=== PATIENT | female | born 1985 | race Caucasian/White ===

== ENCOUNTER 2019-01-30 12:20 | Emergency (ER) | payer MEDICAID ==
[~2019-01-30] VITALS: Ht 154.9 cm; Wt 74.8 kg
[2019-01-30 12:35] VITALS: BP_SYST 164
--- NOTE | 2019-01-30 12:40 | NUR ---
Patient to ER bed 03 to gown for evaluation. Side rails up.
--- NOTE | 2019-01-30 12:45 | NUR ---
Patient arrived in the ED c/o right upper eyelid drooping, slurred speech, right arm and right knee weakness, mild SOB, and upper extremity jitters. Patient's VS WNL, alert and oriented x 4, denied any c/p or changes in vision. Speaks in full sentences. Denied any respiratory distress at this time. Instructed to notify ED staff if symptoms worsen while waiting to be seen by a provider. Patient verbalized understanding.
--- NOTE | 2019-01-30 12:48 | NUR ---
Urine specimen collected and labeled, at bedside awaiting orders.
--- NOTE | 2019-01-30 12:51 | NUR ---
ER at bedside examining patient.
[2019-01-30] MEDS ORDERED: NACL 0.9% 1,000 ML IV ONE (13:00)
[2019-01-30 13:15] LABS: BILIRUBIN,URINE NEGATIVE (NEGATIVE); BLOOD, URINE NEGATIVE (NEGATIVE); CLARITY/URINE CLEAR (CLEAR); COLOR,URINE YELLOW (YELLOW); GLUCOSE,URINE NEGATIVE (NEGATIVE); KETONES,URINE NEGATIVE (NEGATIVE); LEUKOCYTE ESTERASE ,URINE NEGATIVE (NEGATIVE); NITRITE, URINE NEGATIVE (NEGATIVE); PROTEIN URINE NEGATIVE (NEGATIVE); UROBILINOGEN,URINE 0.2 (0.2-1.0)
[2019-01-30] MEDS ORDERED: ONDANSETRON HCL 4 MG/2 ML VIAL IVP ONE (13:15)
[2019-01-30] MEDS ORDERED: methylPREDNISolone SOD SUCC/PF 62.5 MG/ML VIAL IVP ONE (13:15)
[2019-01-30] MEDS ORDERED: MORPHINE 2 MG/ML INJ. SYRINGE IVP ONE ×2 (13:15→15:15)
--- NOTE | 2019-01-30 13:15 | NUR ---
# 20 gauge angiocath placed to right arm. Use of asceptic technique. Opsite placed over site. Blood return noted. Blood for lab drawn from site. Flushed with 10 cc of normal saline. No evidence of infiltration noted. Patient tolerated well. Medicated per MD orders. IVF infusing with no s/s of infiltration at this time. Will cont to monitor
[2019-01-30 13:43] LABS: BASOPHILS # (AUTO) 0.1 K/uL (0.0-0.2); BASOPHILS % (AUTO) 0.9 % (0.0-2.0); EOSINOPHILS # (AUTO) 0.2 K/uL (0.0-0.4); EOSINOPHILS % (AUTO) 2.8 % (0.0-4.0); HEMATOCRIT 36.6 % (36-48); HEMOGLOBIN 12.3 g/dL (12.0-16.0); LYMPHOCYTES # (AUTO) 1.5 K/uL (1.0-5.5); LYMPHOCYTES % (AUTO) 24.5 % (20.5-51.5); MEAN CORPUSCULAR HEMOGLOBIN 30 pg (27-31); MEAN CORPUSCULAR HGB CONC 34 % (32-36); MEAN CORPUSCULAR VOLUME 88 fL (79.0-98.0); MONOCYTES # (AUTO) 0.3 K/uL (0.0-1.0); MONOCYTES % (AUTO) 4.2 % (1.7-9.3); NEUTROPHILS # (AUTO) 4.2 K/uL (1.8-7.7); NEUTROPHILS % (AUTO) 67.6 % (40.0-70.0); PLATELET COUNT (AUTO) 329 K/uL (130-430); RED BLOOD CELL COUNT(AUTO) 4.16 MIL/uL (4.2-6.2); RED CELL DISTRIBUTION WIDTH 15.4 % (9.0-15.0); WHITE BLOOD COUNT (AUTO) 6.3 K/uL (4.8-10.8)
[2019-01-30 13:58] LABS: CALCIUM 8.4 mg/dL (8.4-11.0); CREATININE 0.67 mg/dL (0.55-1.30); POTASSIUM 3.4 mmol/L (3.5-5.1)
[2019-01-30 14:01] LABS: INR 0.9 (0.8-1.2)
[2019-01-30 14:04] LABS: ALBUMIN 3.3 g/dL (3.4-4.8); TOTAL BILIRUBIN 0.3 mg/dL (0.0-1.0)
[2019-01-30] MEDS ORDERED: DIPHENHYDRAMINE INJ 50 MG/ML VIAL IVP ONE (14:15)
--- NOTE | 2019-01-30 15:05 | NUR ---
ER Dr. Cotto at bedside discussing pain with patient.
--- NOTE | 2019-01-30 15:09 | NUR ---
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 tel: [phone]
[2019-01-30 15:15] VITALS: BP_SYST 137
--- NOTE | 2019-01-30 15:35 | NUR ---
Patient given written and verbal discharge instructions and verbalizes understanding. ER MD discussed with patient the results and treatment provided. Patient in stable condition. ID arm band removed. IV catheter removed intact and dressing applied, no active bleeding. Rx of Zofran & Tramadol given. Patient educated on pain management and to follow up with PMD. Pain Scale 2/10 tolerable for patient . Opportunity for questions provided and answered. Medication side effect fact sheet provided.
== END 2019-01-30 15:35 | disposition home or self-care (01) ==
LOC: SED 12:20
DX: R10.84 Generalized abdominal pain (principal); R19.7 Diarrhea, unspecified; G51.0 Bell's palsy; Z88.8 Allergy status to other drugs, medicaments and biological substances; Z90.49 Acquired absence of other specified parts of digestive tract
CPT/HCPCS: 36415; 71045; 74176; 80053; 81003; 83605; 85025; 85610; 85730; 87040; 87086; 93005; 96361; 96374; 96375; 96376; 99284; J1200; J2270; J2405; J2930; J7030

== ENCOUNTER 2019-04-15 10:50 | Emergency (ER) | payer MEDICAID ==
[~2019-04-15] VITALS: Ht 154.9 cm; Wt 77.1 kg
[2019-04-15 10:56] VITALS: BP_SYST 170
--- NOTE | 2019-04-15 11:37 | NUR ---
PATIENT PRESENTS TO THE ER WITH THREE DAY HX OF FULL HEAD PAIN AND ELEVATED ABP; NO TRAUMA, NO OTHER REMARKABLE S/S; ERMD EVALUATION AT 1130 AND PATIENT TO ER #2 AT 1115
[2019-04-15] MEDS ORDERED: LORazepam 1 MG TABLET PO ONE (11:45)
[2019-04-15] MEDS ORDERED: cloNIDine HCL 0.1 MG TABLET PO ONE (11:45)
[2019-04-15] MEDS ORDERED: ONDANSETRON 4 MG ODT TAB PO ONE (12:15)
[2019-04-15 12:27] LABS: BASOPHILS % (AUTO) 0.3 % (0.0-2.0); EOSINOPHILS # (AUTO) 0.1 K/uL (0.0-0.4); EOSINOPHILS % (AUTO) 2.2 % (0.0-4.0); HEMATOCRIT 38.9 % (36-48); HEMOGLOBIN 13.2 g/dL (12.0-16.0); LYMPHOCYTES # (AUTO) 1.7 K/uL (1.0-5.5); MEAN CORPUSCULAR HEMOGLOBIN 30 pg (27-31); MEAN CORPUSCULAR HGB CONC 34 % (32-36); MEAN CORPUSCULAR VOLUME 87 fL (79.0-98.0); MONOCYTES # (AUTO) 0.3 K/uL (0.0-1.0); MONOCYTES % (AUTO) 4.3 % (1.7-9.3); NEUTROPHILS # (AUTO) 4.1 K/uL (1.8-7.7); NEUTROPHILS % (AUTO) 66.2 % (40.0-70.0); PLATELET COUNT (AUTO) 311 K/uL (130-430); RED BLOOD CELL COUNT(AUTO) 4.48 MIL/uL (4.2-6.2); WHITE BLOOD COUNT (AUTO) 6.2 K/uL (4.8-10.8)
--- NOTE | 2019-04-15 12:36 | NUR ---
PATIENT UP TO BATHROOM FREQUENTLY FOR N/V/D; DELAY WITH ORAL MEDICATIONS; OTHERWISE UNCHANGED
[2019-04-15 12:45] LABS: CREATININE 0.72 mg/dL (0.55-1.30); POTASSIUM 3.6 mmol/L (3.5-5.1)
[2019-04-15 12:50] LABS: ALBUMIN 3.9 g/dL (3.4-4.8); TOTAL BILIRUBIN 0.4 mg/dL (0.0-1.0)
--- NOTE | 2019-04-15 13:11 | NUR ---
REASSESSMENT BY ERMD; N/V/D IMPROVED ORDERS EXECUTED
[2019-04-15] MEDS: NACL 0.9% 1,000 ML IV ONE (13:36)
[2019-04-15] MEDS: DIPHENOXYLATE HCL/ATROP SULF 2.5 MG TAB PO ONE (13:39)
[2019-04-15] MEDS: PROCHLORPERAZINE EDISYLATE 10 MG/2 ML VIAL IM ONE (13:43)
[2019-04-15] MEDS ORDERED: PROCHLORPERAZINE EDISYLATE 10 MG/2 ML VIAL IVP ONE ×2 (13:45→14:00)
--- NOTE | 2019-04-15 13:46 | NUR ---
COMPAZINE REORDERED FOR 10 MG IV AND GIVEN
[2019-04-15] MEDS: ONDANSETRON HCL 4 MG/2 ML VIAL IVP ONE (13:47)
--- NOTE | 2019-04-15 13:55 | NUR ---
PATIENT STATES ITCHINESS, ERMD ADVISED AND BENADRYL 25 MG ORDERED IV
[2019-04-15] MEDS: DIPHENHYDRAMINE INJ 50 MG/ML VIAL IVP ONE (13:58)
--- NOTE | 2019-04-15 14:05 | NUR ---
REASSESSMENT; MARGINAL IMPROVEMENT IN PAIN, N/V/D RESOLVED; ORAL ATIVAN, CLONIDINE AND ZOFRAN HELD PER ERMD; DISPOSITION PENDING
[2019-04-15] MEDS ORDERED: DIPHENHYDRAMINE INJ 50 MG/ML VIAL ONE (14:11)
[2019-04-15 14:55] VITALS: BP_SYST 123
--- NOTE | 2019-04-15 14:55 | NUR ---
Patient given written and verbal discharge instructions and verbalizes understanding. ER MD discussed with patient the results and treatment provided. Patient in stable condition. ID arm band removed. Rx of Lomotil and Zofran given. Patient educated on pain management and to follow up with PMD. Pain Scale 0/10. Opportunity for questions provided and answered. Medication side effect fact sheet provided.
== END 2019-04-15 14:55 | disposition home or self-care (01) ==
LOC: SED 10:50
DX: K52.9 Noninfective gastroenteritis and colitis, unspecified (principal); I10 Essential (primary) hypertension; Z86.73 Personal history of transient ischemic attack (TIA), and cerebral infarction without residual deficits; Z90.49 Acquired absence of other specified parts of digestive tract; Z90.710 Acquired absence of both cervix and uterus; Z88.6 Allergy status to analgesic agent
CPT/HCPCS: 36415; 71045; 80053; 82550; 83690; 83880; 84484; 85025; 93005; 96361; 96372; 96374; 96375; 99284; J0780; J1200; J2405; J7030; Q0162